=== PATIENT | male | born 1970 | race Caucasian/White ===

== ENCOUNTER 2017-07-20 21:59 | Emergency (ER) | payer OTHER ==
[2017-07-20] MEDS ORDERED: XYLOCAINE 1% HCL 20 ML MDV IJ ONE (22:15)
--- NOTE | 2017-07-20 22:21 | ERPHSYRPT ---
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 He arrives with complaint of pain in his right buttock symptoms for a week. Patient with an abscess in the right buttock in the cleft. Patient complains of pain in the area he is not any fevers no nausea no vomiting not otherwise ill. Past surgical history is negative. Patient states he is not receiving any medications Timing/Duration: week(s) (one week) Severity: moderate Modifying Factors: Improves With: nothing Associated Symptoms: No nausea, No vomiting, No abdominal pain, No shortness of breath, No heartburn, No diaphoresis, No cough, No chills, No chest pain, No fever, No headaches, No loss of appetite (Will Will need him to follow-up w) Allergies/Adverse Reactions: Penicillins Allergy (Verified 06/24/16 19:02) Hx Tetanus, Diphtheria Vaccination/Date Given: Yes Hx Influenza Vaccination/Date Given: No Hx Pneumococcal Vaccination/Date Given: No - Review of Systems Constitutional: No Fever, No Chills Eyes: No Symptoms Ears, Nose, & Throat: No Symptoms Respiratory: No Cough, No Dyspnea Cardiac: No Chest Pain, No Edema, No Syncope Abdominal/Gastrointestinal: No Abdominal Pain, No Nausea, No Vomiting, No Diarrhea Genitourinary Symptoms: No Dysuria Musculoskeletal: No Back Pain, No Neck Pain Skin: Other (2 cm abscess right buttock in the dae cleft) Neurological: No Dizziness, No Focal Weakness, No Sensory Changes Psychological: No Symptoms Endocrine: No Symptoms All Other Systems: Reviewed and Negative - Past Medical History Pertinent Past Medical History: Yes Musculoskeletal History: Other Other Medical History: HERNIATED DISK IN CERVICAL SPINE - Past Surgical History Past Surgical History: No - Social History Smoking Status: Current every day smoker How long have you smoked: 20 Exposure to second hand smoke: No Drug Use: none Patient Lives Alone: No - Nursing Vital Signs Nursing Vital Signs: Initial Vital Signs Temperature 97.2 F 07/20/17 22:11 Pulse Rate 100 H 07/20/17 22:11 Respiratory Rate 18 07/20/17 22:11 Blood Pressure 148/94 07/20/17 22:11 O2 Sat by Pulse Oximetry 97 07/20/17 22:11 Pain Scale Pain Intensity 8 - Physical Exam General Appearance: mild distress Eye Exam: PERRL/EOMI, eyes nml inspection Ears, Nose, Throat Exam: normal ENT inspection, TMs normal, pharynx normal, moist mucous membranes Neck Exam: normal inspection, non-tender, supple, full range of motion Respiratory Exam: normal breath sounds, lungs clear, No respiratory distress Cardiovascular Exam: regular rate/rhythm, normal heart sounds, normal peripheral pulses Gastrointestinal/Abdomen Exam: soft, normal bowel sounds, No tenderness, No mass Back Exam: normal inspection, normal range of motion, No CVA tenderness, No vertebral tenderness Extremity Exam: normal inspection, normal range of motion, pelvis stable Neurologic Exam: alert, oriented x 3, cooperative, normal mood/affect, nml cerebellar function, nml station & gait, sensation nml, No motor deficits Skin Exam: other (2 cm abscess right buttock in cleft) SpO2 Interpretation: normal (98%) - Course Nursing assessment & vital signs reviewed: Yes Ordered Tests: Active Orders 24 hr Category Date Time Status Wound Care STAT Care 07/20/17 22:15 Active CULTURE,WOUND Stat Lab 07/20/17 22:15 Ordered Medication Summary Discontinued Medications Generic Name Dose Route Start Last Admin Trade Name Wilfridoq PRN Reason Stop Dose Admin Lidocaine HCl 5 ml 07/20/17 22:15 Xylocaine 1% Hcl 20 Ml Mdv IJ 07/20/17 22:16 STAT ONE Lidocaine HCl Confirm 07/20/17 22:24 Xylocaine 1% Hcl 20 Ml Mdv Administered 07/20/17 22:25 Dose 5 ml .[facility]TE [facility] - Progress Progress: improved Progress Note: 07/20/17 22:19 46-year-old white male arrives with complaint of a painful abscess on his right buttock within the needle left symptoms for a week. He has no fevers vomiting nausea. Otherwise appears to be well. Will have nurse obtained informed consent for aspiration abscess right buttock with possible incision and drainage. Patient is informed the possible risks. 07/20/17 22:50 I and D abscess right buttock Abscess right buttock (2 cm) sterilely cleansed by the patient'. procedure was explained and consent was obtained Area anesthetized with 1% lidocaine, an 18-gauge needle is used to aspirate a moderate amount of purulent fluid from the abscess. Culture was obtained A #11 blade was made used to make approximately 1.5 cm incision And abscess was packed with iodoform gauze. - Departure Time of Disposition: 22:53 Departure Disposition: Home Clinical Impression: Abscess of right buttock, Encounter for incision and drainage procedure Condition: Fair Critical Care Time: No Referrals: DOCTOR,NO FAMILY [Primary Care Provider] - Additional Instructions: Return home. Clean area daily apply bacitracin. Remove packing in 2 days. Follow-up with your family doctor (list) Clindamycin 300 mg orally 3 times a day for 10 days. Edison 5/325 #12 one orally every 4-6 hours as needed for pain. Return for acute distress or severe symptoms or problems Prescriptions: Clindamycin HCl 300 mg PO TID #30 capsule Hydrocodone/Acetaminophen [Edison 5-325 Tablet] 1 tab PO Q4-6HPRN PRN #12 tablet PRN Reason: Pain
[2017-07-20] MEDS ORDERED: XYLOCAINE 1% HCL 20 ML MDV ONE (22:24)
[2017-07-20] MEDS ORDERED: CLEOCIN 150 MG CAPSULE PO ONE (22:56)
[2017-07-20] MEDS ORDERED: NORCO 5/325 MG PO ONE (22:56)
[2017-07-20] MEDS ORDERED: CLEOCIN 150 MG CAPSULE ONE (23:03)
[2017-07-20] MEDS ORDERED: NORCO 5/325 MG ONE (23:03)
[2017-07-20 23:15] VITALS: BP 132/87; PULSE 97; O2SAT 98
== END 2017-07-20 23:28 | disposition home or self-care (01) ==
LOC: ED 21:59
PROC: 0H98XZZ Drainage of Buttock Skin, External Approach (ICD-10-PCS; principal; 2017-07-20)
DX: L02.31 Cutaneous abscess of buttock (principal)
CPT/HCPCS: 10060; 87070; 87077; 99284; A9270-GY

== ENCOUNTER 2018-04-05 13:40 | Emergency (ER) | payer OTHER ==
[2018-04-05] MEDS ORDERED: Sodium Chloride 0.9% 1000 ML 1,000 ML IV STA (14:11)
--- NOTE | 2018-04-05 14:19 | ERPHSYRPT ---
- History of Present Illness Time Seen by Provider: 04/05/18 14:03 Historian: patient Exam Limitations: no limitations Patient Subjective Stated Complaint: pt reports abd pain radiating to back- states that he is concerned about a kidney stones-states that he drinks a large amount of dr pepper-denies difficutly with uriantion or bowels Triage Nursing Assessment: pt pink warm and [id number] easy and nonlabored- abd soft and nontender to palp Physician History: 47-year-old white male arrives with complaint of pain in the anterior abdomen radiating to his back symptoms going on since yesterday described as a aching Symptoms since yesterday. Patient states that his history of kidney stones he has been worried about that he also is concerned that he might have something wrong with his liver. Past medical history includes herniated discs in his cervical spine. Past surgical history negative Social history positive tobacco use positive occasional alcohol use positive for recreational drug use in the past Timing/Duration: yesterday Activities at Onset: none Quality: aching Abdominal Pain Onset Location: epigastric Pain Radiation: flank Severity of Pain-Max: moderate Modifying Factors: Improves With: nothing Associated Symptoms: back, No chest pain, No diaphoresis, No diarrhea, No fever/ chills, No fatigue, No headache, No heartburn, No loss of appetite, No nausea, No vomiting (the jen follow-up will be weighed anywhere on t is a have visible and THAT was read sinusi ventricular a narrow but I can't see), No weakness Previous symptoms: no prior history Allergies/Adverse Reactions: Penicillins Allergy (Verified 04/05/18 14:01) Hx Tetanus, Diphtheria Vaccination/Date Given: Yes Hx Influenza Vaccination/Date Given: No Hx Pneumococcal Vaccination/Date Given: No Immunizations Up to Date: Yes - Review of Systems Constitutional: No Fever, No Chills Eyes: No Symptoms Ears, Nose, & Throat: No Symptoms Respiratory: No Cough, No Dyspnea Cardiac: No Chest Pain, No Edema, No Syncope Abdominal/Gastrointestinal: Abdominal Pain, No Nausea, No Vomiting, No Diarrhea , No Constipation, No Hematemesis, No Hematochezia, No Melena, No Dysphagia, No Appetite Changes Genitourinary Symptoms: Flank Pain, No Dysuria, No Frequency, No Hematuria, No Hesitancy, No Incontinence, No Urgency, No Urinary Retention, No Testicle Pain, No Penile Discharge Musculoskeletal: No Back Pain, No Neck Pain Skin: No Rash Neurological: No Dizziness, No Focal Weakness, No Sensory Changes Psychological: No Symptoms Endocrine: No Symptoms All Other Systems: Reviewed and Negative - Past Medical History Pertinent Past Medical History: Yes Musculoskeletal History: Other Other Medical History: HERNIATED DISK IN CERVICAL SPINE - Past Surgical History Past Surgical History: No - Social History Smoking Status: Current every day smoker How long have you smoked: yrs Exposure to second hand smoke: No Drug Use: none Patient Lives Alone: No - Nursing Vital Signs Nursing Vital Signs: Initial Vital Signs Temperature 98.3 F 04/05/18 13:58 Pulse Rate 84 04/05/18 13:58 Respiratory Rate 18 04/05/18 13:58 Blood Pressure 126/89 04/05/18 13:58 O2 Sat by Pulse Oximetry 97 04/05/18 13:58 Pain Scale Pain Intensity 1 - Physical Exam General Appearance: no apparent distress, alert Eye Exam: PERRL/EOMI, eyes nml inspection Ears, Nose, Throat Exam: normal ENT inspection, pharynx normal, moist mucous membranes Neck Exam: normal inspection, non-tender, supple, full range of motion Respiratory Exam: normal breath sounds, lungs clear, No respiratory distress Cardiovascular Exam: regular rate/rhythm (patient will perform he), normal heart sounds Gastrointestinal/Abdomen Exam: soft, normal bowel sounds, No tenderness, No mass Back Exam: normal inspection (as far), normal range of motion, No CVA tenderness , No vertebral tenderness Extremity Exam: normal inspection, normal range of motion, pelvis stable Neurologic Exam: alert, oriented x 3, cooperative, casing fluid tender II-XII nml as tested, normal mood/affect, nml cerebellar function, sensation nml, No motor deficits Skin Exam: normal color, warm, dry SpO2 Interpretation: normal (97%) SpO2: 97 Oxygen Delivery: Room Air - Course Nursing assessment & vital signs reviewed: Yes - CT Exams Abdomen/Pelvis CT Interpretation: Discussed w/radiologist (CT abdomen and pelvis: Impression 1. scattered colonic diverticulosis without diverticulitis. 2. Fatty left inguinal and tiny fatty umbilical hernia, 3. Remaining CT abdome without contrast is negative) Ordered Tests: Active Orders 24 hr Category Date Time Status IV Insertion STAT Care 04/05/18 14:11 Active ABDOMEN AND PELVIS W/0 CONTRAS [CT] Stat Exams 04/05/18 14:14 Completed AMYLASE Stat Lab 04/05/18 14:35 Completed CBC W DIFF Stat Lab 04/05/18 14:35 Completed CMP Stat Lab 04/05/18 14:35 Completed LIPASE Stat Lab 04/05/18 14:35 Completed UA W/RFX UR CULTURE Stat Lab 04/05/18 14:40 Completed Urine Triage Profile Stat Lab 04/05/18 14:40 Completed Medication Summary Discontinued Medications Generic Name Dose Route Start Last Admin Trade Name Aly PRN Reason Stop Dose Admin Sodium Chloride 1,000 mls @ 999 mls/hr 04/05/18 14:11 04/05/18 14:49 Sodium Chloride 0.9% 1000 Ml IV 04/05/18 15:11 999 mls/hr .Q1H1M STA Administration Sodium Chloride Confirm 04/05/18 14:40 Sodium Chloride 0.9% 1000 Ml Administered 04/05/18 14:41 Dose 1,000 mls @ ud .ROUTE .[facility] ONE Lab/Rad Data: Laboratory Result Diagrams 04/05/18 14:35 04/05/18 14:35 Laboratory Results 04/05/18 04/05/18 04/05/18 Range/Units 14:40 14:40 14:35 WBC (4.0-10.5) K/mm3 RBC (4.1-5.6) M/mm3 Hgb (12.5-18.0) gm/dl Hct (42-50) % MCV (78-100) fl MCH (26-32) pg MCHC (32-36) g/dl RDW (11.5-14.0) % Plt Count (150-450) K/mm3 MPV (6-9.5) fl Gran % (36.0-66.0) % Eos # (Auto) (0-0.5) Absolute Lymphs (auto) (1.0-4.6) Absolute Monos (auto) (0.0-1.3) Lymphocytes % (24.0-44.0) % Monocytes % (0.0-12.0) % Eosinophils % (0.00-5.0) % Basophils % (0.0-0.4) % Absolute Granulocytes (1.4-6.9) Basophils # (0-0.4) Sodium 140 (137-145) mmol/L Potassium 3.9 (3.5-5.1) mmol/L Chloride 109 H (98-107) mmol/L Carbon Dioxide 26 (22-30) mmol/L Anion Gap 8.8 (5-15) MEQ/L BUN 5 L (9-20) mg/dL Creatinine 0.70 (0.66-1.25) mg/dL Estimated GFR > 60.0 ML/MIN Glucose 82 (74-106) mg/dL Calcium 8.6 (8.4-10.2) mg/dL Total Bilirubin 0.70 (0.2-1.3) mg/dL AST 27 (17-59) U/L ALT 28 (0-50) U/L Alkaline Phosphatase 63 (38-126) U/L Serum Total Protein 6.0 L (6.3-8.2) g/dL Albumin 3.6 (3.5-5.0) g/dL Amylase 55 (30-110) U/L Lipase 67 (23-300) U/L Ur Collection Type CCMS Urine Color YELLOW (YELLOW) Urine Appearance CLEAR (CLEAR) Urine pH 7.0 (5-6) Ur Specific [place] 1.010 (1.005-1.025) Urine Protein NEGATIVE (Negative) Urine Ketones NEGATIVE (NEGATIVE) Urine Blood NEGATIVE (0-5) Jacob/ul Urine Nitrite NEGATIVE (NEGATIVE) Urine Bilirubin NEGATIVE (NEGATIVE) Urine Urobilinogen NORMAL (0-1) mg/dL Ur Leukocyte Esterase NEGATIVE (NEGATIVE) Urine Culture Reflexed NO (NO) Urine Glucose NEGATIVE (NEGATIVE) mg/dL Urine Opiates Level NEGATIVE (NEGATIVE) Ur Methadone NEGATIVE (NEGATIVE) Urine Barbiturates NEGATIVE (NEGATIVE) Ur Phencyclidine (PCP) NEGATIVE (NEGATIVE) Urine Amphetamine NEGATIVE (NEGATIVE) U Benzodiazepine Level NEGATIVE (NEGATIVE) Urine Cocaine NEGATIVE (NEGATIVE) Urine Marijuana (THC) NEGATIVE (NEGATIVE) Specimen Received 04-05-18 2921 04/05/18 Range/Units 14:35 WBC 12.7 H (4.0-10.5) K/mm3 RBC 4.89 (4.1-5.6) M/mm3 Hgb 15.1 (12.5-18.0) gm/dl Hct 44.4 (42-50) % MCV 90.8 (78-100) fl MCH 30.9 (26-32) pg MCHC 34.0 (32-36) g/dl RDW 13.4 (11.5-14.0) % Plt Count 289 (150-450) K/mm3 MPV 10.2 H (6-9.5) fl Gran % 61.6 (36.0-66.0) % Eos # (Auto) 0.60 H (0-0.5) Absolute Lymphs (auto) 3.27 (1.0-4.6) Absolute Monos (auto) 0.95 (0.0-1.3) Lymphocytes % 25.8 (24.0-44.0) % Monocytes % 7.5 (0.0-12.0) % Eosinophils % 4.7 (0.00-5.0) % Basophils % 0.4 (0.0-0.4) % Absolute Granulocytes 7.81 H (1.4-6.9) Basophils # 0.05 (0-0.4) Sodium (137-145) mmol/L Potassium (3.5-5.1) mmol/L Chloride (98-107) mmol/L Carbon Dioxide (22-30) mmol/L Anion Gap (5-15) MEQ/L BUN (9-20) mg/dL Creatinine (0.66-1.25) mg/dL Estimated GFR ML/MIN Glucose (74-106) mg/dL Calcium (8.4-10.2) mg/dL Total Bilirubin (0.2-1.3) mg/dL AST (17-59) U/L ALT (0-50) U/L Alkaline Phosphatase (38-126) U/L Serum Total Protein (6.3-8.2) g/dL Albumin (3.5-5.0) g/dL Amylase (30-110) U/L Lipase (23-300) U/L Ur Collection Type Urine Color (YELLOW) Urine Appearance (CLEAR) Urine pH (5-6) Ur Specific [place] (1.005-1.025) Urine Protein (Negative) Urine Ketones (NEGATIVE) Urine Blood (0-5) Jacob/ul Urine Nitrite (NEGATIVE) Urine Bilirubin (NEGATIVE) Urine Urobilinogen (0-1) mg/dL Ur Leukocyte Esterase (NEGATIVE) Urine Culture Reflexed (NO) Urine Glucose (NEGATIVE) mg/dL Urine Opiates Level (NEGATIVE) Ur Methadone (NEGATIVE) Urine Barbiturates (NEGATIVE) Ur Phencyclidine (PCP) (NEGATIVE) Urine Amphetamine (NEGATIVE) U Benzodiazepine Level (NEGATIVE) Urine Cocaine (NEGATIVE) Urine Marijuana (THC) (NEGATIVE) Specimen Received - Progress Progress: improved Progress Note: 04/05/18 16:47 Patient feeling better after IV normal saline . 20 Patient's labs show mild elevation in white count of the CBC chemistry is essentially normal CT of the abdomen scattered colonic diverticulosis without diverticulitis, fatty left inguinal in fatty umbilical hernia, remaining CT abdomen and pelvis without contrast was negative urine was clean urine drug screen was clean , inspect was reviewed patient with no recent narcotics. I discussed the patient's pain medication with him he stated that a long time ago as a youth, he did use recreational drugs but he has no problem with narcotics or narcotic addiction. Will place patient on clear fluids 24-48 hours, Delta for pain . - Departure Time of Disposition: 16:49 Departure Disposition: Home Clinical Impression: Diarrhea Abdominal pain Qualifiers: Abdominal location: periumbilical Qualified Code(s): R10.33 - Periumbilical pain Condition: Fair Critical Care Time: No Referrals: DOCTOR,NO FAMILY [Primary Care Provider] - Additional Instructions: Return home. Plenty of fluids. Clear fluids only 24-48 hours if abdominal pain nausea, vomiting, or diarrhea. Delta as prescribed follow-up with your family doctor (list) if symptoms are worse, no better in 24-48 hours, or persist longer than one week. Return for acute distress or for severe symptoms Prescriptions: Hydrocodone/Acetaminophen [Delta 5-325 Tablet] 1 tab PO Q4-6HPRN PRN #10 tablet MDD 6 tablets PRN Reason: Pain
[2018-04-05] MEDS ORDERED: Sodium Chloride 0.9% 1000 ML 1,000 ML ONE (14:40)
[2018-04-05 14:45] LABS: BASOPHIL % 0.4 % (0.0-0.4); Basophil (Absolute #) 0.05 (0-0.4); Eosinophil % 4.7 % (0.00-5.0); Granulocyte Absolute (ANC) 7.81 (1.4-6.9); Granulocytes % 61.6 % (36.0-66.0); Hematocrit 44.4 % (42-50); Hemoglobin 15.1 gm/dl (12.5-18.0); Lymphocyte (Absolute #) 3.27 (1.0-4.6); Lymphocytes % 25.8 % (24.0-44.0); Mean Cell Volume 90.8 fl (78-100); Mean Corpuscular Hemoglobin 30.9 pg (26-32); Mean Platelet Volume 10.2 fl (6-9.5); Monocyte (Absolute #) 0.95 (0.0-1.3); Monocytes % 7.5 % (0.0-12.0); Platelet Count 289 K/mm3 (150-450); Red Blood Count 4.89 M/mm3 (4.1-5.6); Red Cell Distribution Width 13.4 % (11.5-14.0); White Blood Count 12.7 K/mm3 (4.0-10.5)
[2018-04-05 14:55] LABS: Appearance CLEAR (CLEAR); Bilirubin NEGATIVE (NEGATIVE); Blood NEGATIVE Ery/ul (0-5); Glucose NEGATIVE (NEGATIVE); Ketones NEGATIVE (NEGATIVE); Leukocyte Esterase NEGATIVE (NEGATIVE); Nitrite NEGATIVE (NEGATIVE); Protein,Urine Dip NEGATIVE (Negative); Urobilinogen NORMAL mg/dL (0-1)
[2018-04-05 15:05] LABS: ALBUMIN 3.6 g/dL (3.5-5.0); ALKALINE PHOSPHATASE 63 U/L (38-126); AMYLASE 55 U/L (30-110); ANION GAP 8.8 MEQ/L (5-15); BLOOD UREA NITROGEN 5 mg/dL (9-20); CHLORIDE 109 mmol/L (98-107); Calcium 8.6 mg/dL (8.4-10.2); Carbon Dioxide 26 mmol/L (22-30); Glucose 82 mg/dL (74-106); LIPASE 67 U/L (23-300); Potassium 3.9 mmol/L (3.5-5.1); SGOT/AST 27 U/L (17-59); SGPT/ALT 28 U/L (0-50); SODIUM 140 mmol/L (137-145)
[2018-04-05 15:12] LABS: Amphetamine,Urine NEGATIVE (NEGATIVE); Barbiturate,Urine NEGATIVE (NEGATIVE); Benzodiazepine,Urine NEGATIVE (NEGATIVE); Cocaine,Urine NEGATIVE (NEGATIVE); Methadone,Urine NEGATIVE (NEGATIVE); Opiate,Urine NEGATIVE (NEGATIVE); PCP,Urine NEGATIVE (NEGATIVE); THC,Urine NEGATIVE (NEGATIVE)
[2018-04-05 15:51] VITALS: BP 131/85; PULSE 70
[2018-04-05 15:54] VITALS: O2SAT 97
--- NOTE | 2018-04-05 16:05 | XRAY ---
Indication: Bilateral upper abdominal pain. Multiple contiguous axial images obtained through the abdomen and pelvis without contrast as ordered. Comparison: None Lung bases are clear. Heart is not enlarged. Noncontrasted stomach and bowel loops appear nonobstructed. Normal appendix. Minimal scattered colonic diverticulosis without diverticulitis. No free fluid/air. Remaining liver, gallbladder, pancreas, spleen, adrenal glands, kidneys, ureters, bladder, and aorta appear unremarkable for noncontrast exam. Osseous structures intact. Small fatty left inguinal and tiny fatty umbilical hernias. Impression: 1. Scattered colonic diverticulosis without diverticulitis. 2. Fatty left inguinal and fatty in buckle hernias. 3. Remaining CT abdomen/pelvis without contrast exam is negative. CTDI 17.13
== END 2018-04-05 17:18 | disposition home or self-care (01) ==
LOC: ED 13:40
DX: R10.33 Periumbilical pain (principal); R19.7 Diarrhea, unspecified; R10.13 Epigastric pain; K57.32 Diverticulitis of large intestine without perforation or abscess without bleeding; Z87.442 Personal history of urinary calculi
CPT/HCPCS: 36000; 36415; 74176; 80053; 80307; 81002; 82150; 83690; 85025; 99284

== ENCOUNTER 2019-12-13 17:47 | Emergency (ER) | payer OTHER ==
[2019-12-13 18:10] VITALS: BP 155/100; PULSE 87; O2SAT 97
--- NOTE | 2019-12-13 18:52 | ERPHSYRPT ---
- History of Present Illness Time Seen by Provider: 12/13/19 18:17 Source: patient Patient Subjective Stated Complaint: Pt has had a sore throat since about Tuesday and the pain is getting worse, work made him come to be checked out Triage Nursing Assessment: Pt brought his self to the ER, hypertensive, afebrile , swollen gland on left side of neck, difficulty swallowing, rates pain 3/10, denies cough, denies any other issues at this time Physician History: 49 years old male presented in the ER with chief complaint of sore throat for the last 4 days, sudden onset with gradual worsening more on the left side associated with left upper neck node enlargement. Patient report dull to sharp pain especially with swallowing and movements of jaw but not associated fever chills or cough. He has been taking ibuprofen at home with minimal relief of pain. Denies any sick contact Timing/Duration: day(s) (4), gradual onset, sudden, worse Cough Quality/Degree: no cough Allergies/Adverse Reactions: Penicillins Allergy (Verified 12/13/19 18:10) Hx Tetanus, Diphtheria Vaccination/Date Given: Yes Hx Influenza Vaccination/Date Given: No Hx Pneumococcal Vaccination/Date Given: No Travel Risk - International Travel Have you traveled outside of the country in past 3 weeks: No Have you or anyone close to you been diagnosed with or: No Do your reside in a community with a known COVID-19 case?: Yes If Yes where:: [place] - Coronavirus Screening Has patient experienced Coronavirus symptoms: No - Review of Systems Constitutional: No Symptoms, Night Sweats Ears, Nose, & Throat: Throat Pain, Throat Swelling, Painful Swallowing Respiratory: No Symptoms Cardiac: No Symptoms Abdominal/Gastrointestinal: No Symptoms Musculoskeletal: No Symptoms Skin: No Symptoms Neurological: No Symptoms Psychological: No Symptoms Endocrine: No Symptoms - Past Medical History Pertinent Past Medical History: Yes Musculoskeletal History: Other Other Medical History: HERNIATED DISK IN CERVICAL SPINE - Past Surgical History Past Surgical History: No - Social History Smoking Status: Current every day smoker How long have you smoked: yrs Exposure to second hand smoke: Yes Drug Use: none Patient Lives Alone: Yes - Nursing Vital Signs Nursing Vital Signs: Initial Vital Signs Temperature 98.4 F 12/13/19 18:02 Pulse Rate 87 12/13/19 18:02 Blood Pressure 155/100 12/13/19 18:02 O2 Sat by Pulse Oximetry 97 12/13/19 18:02 Pain Scale Pain Intensity 3 - Physical Exam General Appearance: no apparent distress, alert Eye Exam: PERRL/EOMI, eyes nml inspection Ears, Nose, Throat Exam: TMs normal, pharyngeal erythema (Diffuse pharyngeal erythema with some swelling on the left. No exudates. Palpable anterior cervical lymph nodes on the left) Respiratory Exam: normal breath sounds, lungs clear Cardiovascular Exam: regular rate/rhythm, normal heart sounds, normal peripheral pulses Gastrointestinal/Abdomen Exam: soft Extremity Exam: normal inspection Neurologic Exam: alert, oriented x 3, cooperative Skin Exam: normal color Lymphatic Exam: adenopathy SpO2 Interpretation: normal SpO2: 97 O2 Delivery: Room Air - Course Nursing assessment & vital signs reviewed: Yes - Progress Progress: re-examined Air Movement: good Progress Note: 12/13/19 18:50 Patient has bacterial pharyngitis. I will treat him with clindamycin and recommended outpatient follow-up. Blood Culture(s) Obtained: No Antibiotics given: Yes Counseled pt/family regarding: diagnosis, need for follow-up - Departure Departure Disposition: Home Clinical Impression: Acute pharyngitis Qualifiers: Pharyngitis/tonsillitis etiology: other specified organisms Qualified Code(s): J02.8 - Acute pharyngitis due to other specified organisms Condition: Stable Critical Care Time: No Referrals: DOCTOR,NO FAMILY [Primary Care Provider] - FLETCHER JESSICA [ACTIVE STAFF] - Follow Up with PCP/3 days Instructions: Sore Throat, Adult (DC) Additional Instructions: Take Tylenol/ibuprofen as needed. Follow-up with primary care for reevaluation. Return to ER for any worsening. Prescriptions: Clindamycin HCl 150 mg [Cleocin 150 mg Capsule] 2 cap PO TID #60 capsule
== END 2019-12-13 19:08 | disposition home or self-care (01) ==
LOC: ED 17:47
DX: J02.8 Acute pharyngitis due to other specified organisms (principal)
CPT/HCPCS: 99283